=== PATIENT | male | born 2000 | race African-American/Black ===

== ENCOUNTER 2025-01-15 12:19 | Inpatient (IN) | payer OTHER ==
[~2025-01-15] VITALS: Ht 182.9 cm; Wt 101.6 kg
[2025-01-15] MEDS: SODIUM CHLORIDE 0.9% 1,000 ML IV ONE (13:39)
[2025-01-15] MEDS: NALOXONE HCL 0.4MG/ML 1ML VIAL IV PRN (13:43)
[2025-01-15 13:45] LABS: HEMATOCRIT. 41.6 % (42.0-52.0); MEAN CORPUSCULAR HEMOGLOBIN 30.1 pg (28.0-32.0); MEAN CORPUSCULAR HGB CONC 33.6 g/dL (31.0-37.0); MEAN CORPUSCULAR VOLUME 89.4 fL (80.0-94.0); PLATELET 278 x1000/uL (130-400); RED BLOOD CELL COUNT 4.65 mill/uL (4.7-6.1); RED CELL DISTRIBUTION WIDTH 12.9 % (11.6-14.6); WHITE BLOOD COUNT 7.8 x1000/uL (4.5-11.0)
[2025-01-15 13:57] LABS: DIFFERENTIAL COMMENT 1
[2025-01-15 13:58] LABS: AMMONIA 38 uMol/L (<32)
[2025-01-15 14:02] LABS: CHLORIDE 105 mEq/L (98-107); POTASSIUM 3.2 mEq/L (3.5-5.1); SODIUM 143 mEq/L (136-145)
[2025-01-15 14:03] LABS: CALCIUM 8.7 mg/dL (8.7-10.4); CARBON DIOXIDE 24 mEq/L (21-32)
[2025-01-15 14:08] LABS: ETHANOL BLOOD 274 mg/dL (<10); GLUCOSE 119 mg/dL (70-105); UREA NITROGEN BLOOD 10 mg/dL (9-23)
[2025-01-15 14:10] LABS: ACETAMINOPHEN < 2 ug/mL (10-30); CREATINE KINASE 109 IU/L (46-171)
[2025-01-15 15:03] LABS: ATYPICAL LYMPHOCYTES 3
[2025-01-15 15:04] LABS: GIANT PLATELETS FEW; PLATELET ESTIMATE NORMAL
[2025-01-15 15:37] LABS: GLUCOSE URINE NEGATIVE (NEGATIVE); KETONES URINE NEGATIVE (NEGATIVE)
[2025-01-15 15:47] LABS: *AMPHETAMINES SCREEN URINE PRESUMPTIVE POSITIVE (NEGATIVE); *BARBITURATES SCREEN URINE NEGATIVE (NEGATIVE); *BENZODIAZEPINES SCREEN URINE NEGATIVE (NEGATIVE); *COCAINE SCREEN URINE PRESUMPTIVE POSITIVE (NEGATIVE); METHADONE URINE SCREEN NEGATIVE (NEGATIVE)
[2025-01-15 15:48] LABS: CANNABINOID URINE SCREEN PRESUMPTIVE POSITIVE (NEGATIVE); ECSTASY MDMA SCREEN URINE NEGATIVE (NEGATIVE); OPIATES URINE SCREEN NEGATIVE (NEGATIVE); PHENCYCLIDINE URINE SCREEN PRESUMTIVE POSITIVE (NEGATIVE)
[2025-01-15] MEDS: SODIUM CHL 0.9% + KCL 20MEQ/L 1,000 ML IV ONE (15:52)
[2025-01-15 16:27] LABS: CLARITY URINE CLEAR (CLEAR); COLOR URINE YELLOW (YELLOW); NITRITE URINE NEGATIVE (NEGATIVE); OCCULT BLOOD URINE NEGATIVE (NEGATIVE); PROTEIN URINE NEGATIVE (NEGATIVE); SPECIFIC GRAVITY URINE 1.003 (1.005-1.030)
[2025-01-15 16:28] LABS: LEUKOCYTE ESTERASE URINE NEGATIVE (NEGATIVE); UROBILINOGEN URINE 0.2 E.U./dL (0.2-1.0)
[2025-01-15] MEDS ORDERED: DOCUSATE SODIUM 100MG CAPSULE PO PRN (16:45)
[2025-01-15] MEDS ORDERED: GUAIFENESIN 200MG/10ML SUGAR FREE UDC PO PRN (16:45)
[2025-01-15] MEDS ORDERED: CLONIDINE 0.1MG TABLET PO PRN (16:45)
[2025-01-15] MEDS ORDERED: IPRATROPIUM/ALBUTEROL 0.5-3(2.5)MG/3ML NEB HHN PRN (16:45)
[2025-01-15] MEDS ORDERED: MAGNESIUM/ALUMINUM HYDROXIDE/SIMETHICONE 30ML UDC PO PRN (16:45)
[2025-01-15] MEDS ORDERED: ACETAMINOPHEN 325MG TABLET PO PRN ×2 (16:45)
[2025-01-15] MEDS: ONDANSETRON HCL 4MG/2ML INJ IV NR (17:12)
[2025-01-15] MEDS: MVI, ADULT NO.1 10 ML, FOLIC ACID 1 MG, THIAMINE HCL 100 MG in SODIUM CHLORIDE 0.9% 1,0... IV ONE (17:55)
[2025-01-15] MEDS: PANTOPRAZOLE SODIUM 40 MG/VIAL IV SCH (18:07)
[2025-01-15 18:32] LABS: PHOSPHORUS 3.5 mg/dL (2.5-4.9)
[2025-01-15 22:53] VITALS: BP 122/71; PULSE 48; RESP 18; TEMP 36; O2SAT 100
[2025-01-16 01:52] LABS: CREATINE KINASE MB FRACTION 0.9 ng/mL (0.5-3.6)
[2025-01-16 01:53] LABS: CREATINE KINASE 61 IU/L (46-171)
[2025-01-16 01:59] LABS: TROPONIN I HIGH SENSITIVITY < 4 ng/L (3.0-53)
[2025-01-16 04:00] VITALS: BP_SYST 118; BP_SYST 122; BP_DIAS 51; BP_DIAS 71; PULSE 48; PULSE 60; RESP 18; RESP 20; TEMP 36; TEMP 36.6; O2SAT 99
[2025-01-16 08:00] VITALS: BP 118/70; PULSE 45; RESP 18; TEMP 36.1
[2025-01-16] MEDS: FOLIC ACID 1MG TABLET PO SCH (09:02)
[2025-01-16] MEDS: THIAMINE HCL 100MG TABLET PO SCH (09:02)
[2025-01-16 10:33] LABS: BASOPHILS % 0.8 % (0.0-2.0); EOSINOPHILS % 1.3 % (0.0-5.0); HEMATOCRIT. 40.2 % (42.0-52.0); HEMOGLOBIN. 13.7 g/dL (14.0-18.0); LYMPHOCYTES % 53.7 % (20.0-50.0); MEAN CORPUSCULAR HEMOGLOBIN 30.4 pg (28.0-32.0); MEAN CORPUSCULAR HGB CONC 33.9 g/dL (31.0-37.0); MEAN CORPUSCULAR VOLUME 89.6 fL (80.0-94.0); MEAN PLATELET VOLUME 8.5 fl (7.4-10.4); MONOCYTES % 4.5 % (2.0-8.0); NEUTROPHILS % 39.7 % (40.0-76.0); PLATELET 244 x1000/uL (130-400); RED BLOOD CELL COUNT 4.49 mill/uL (4.7-6.1); RED CELL DISTRIBUTION WIDTH 13.4 % (11.6-14.6); WHITE BLOOD COUNT 6.1 x1000/uL (4.5-11.0)
[2025-01-16 10:38] LABS: CHLORIDE 107 mEq/L (98-107); POTASSIUM 4.4 mEq/L (3.5-5.1); SODIUM 140 mEq/L (136-145)
[2025-01-16 10:39] LABS: CARBON DIOXIDE 26 mEq/L (21-32)
[2025-01-16 10:40] LABS: CALCIUM 8.7 mg/dL (8.7-10.4)
[2025-01-16 10:44] LABS: CREATININE 0.9 mg/dL (0.6-1.3); GLUCOSE 91 mg/dL (70-105); UREA NITROGEN BLOOD 6 mg/dL (9-23)
[2025-01-16 10:45] LABS: CREATINE KINASE MB FRACTION 0.7 ng/mL (0.5-3.6)
[2025-01-16 10:46] LABS: CREATINE KINASE 61 IU/L (46-171)
[2025-01-16 11:21] LABS: TROPONIN I HIGH SENSITIVITY < 4 ng/L (3.0-53)
[2025-01-16 12:00] VITALS: BP 112/65; PULSE 50; RESP 18; TEMP 36.6
[2025-01-16 16:00] VITALS: BP 122/70; PULSE 50; RESP 18; TEMP 36.1
[2025-01-16 18:51] VITALS: BP 122/70; PULSE 50; TEMP 97.8; O2SAT 98
[2025-01-16 20:00] VITALS: BP 122/68; PULSE 46; RESP 14; TEMP 36.6
[2025-01-16] MEDS ORDERED: ATROPINE SULFATE 1MG/10ML SYR IV PRN (23:15)
[2025-01-17] VITALS: BP 126/72; PULSE 40; RESP 18; TEMP 36.5
[2025-01-17 04:00] VITALS: BP 108/54; PULSE 43; RESP 20; TEMP 36.7; O2SAT 97
[2025-01-17 08:00] VITALS: BP 98/71; PULSE 58; RESP 18; TEMP 36.6; O2SAT 99
[2025-01-17 12:00] VITALS: BP 131/79; PULSE 20; RESP 20; TEMP 36.8; O2SAT 100
[2025-01-17 16:00] VITALS: BP 112/56; PULSE 54; RESP 18; TEMP 36.9; O2SAT 98
[2025-01-18 04:00] VITALS: BP 114/68; PULSE 52; RESP 18; TEMP 36.4; O2SAT 99
[2025-01-18 08:00] VITALS: BP 117/73; PULSE 60; RESP 18; TEMP 36.4; O2SAT 100
[2025-01-18] MEDS: FAMOTIDINE 20MG/2ML VIAL IV SCH (08:33)
[2025-01-18 11:56] VITALS: BP 117/73; PULSE 60; TEMP 97.5; O2SAT 100
[2025-01-18 12:00] VITALS: BP 117/73; PULSE 60; RESP 18; TEMP 36.4; O2SAT 100
== END 2025-01-18 14:30 | disposition home or self-care (01) | DRG 816 ==
LOC: ER 12:19 → EDBD 12:19 → EDBEDREQTM 18:03 → EDBEDREQ 18:03 → ENRESERV 22:22 → 6EST 22:58 → 7WST 01-16 23:44
PROVIDERS: ADMIT Hospitalist; ATTEND Hospitalist
DX: T59.7X1A Toxic effect of carbon dioxide, accidental (unintentional), initial encounter (principal); G92.8 Other toxic encephalopathy; T51.8X1A Toxic effect of other alcohols, accidental (unintentional), initial encounter; E87.6 Hypokalemia; F19.10 Other psychoactive substance abuse, uncomplicated; F14.10 Cocaine abuse, uncomplicated; Y90.8 Blood alcohol level of 240 mg/100 ml or more; K59.00 Constipation, unspecified; R00.1 Bradycardia, unspecified; F10.120 Alcohol abuse with intoxication, uncomplicated; Z79.899 Other long term (current) drug therapy; Y92.89 Other specified places as the place of occurrence of the external cause
CPT/HCPCS: 36415; 71045; 80048; 80305; 80307; 80320; 80329; 81003; 82140; 82550; 82553; 83735; 84100; 84484; 85025; 93005; 99291; A4606; J2310; J2405; J2470; J3411; J3480; J3490; J7030; G0480